=== PATIENT | female | born 1955 | race Caucasian/White ===

== ENCOUNTER 2020-08-07 20:47 | Emergency (ER) | payer MEDICARE ==
[2020-08-07 22:09] VITALS: BP 146/84; PULSE 58; RESP 15; TEMP 97.4
--- NOTE | 2020-08-07 23:25 | ED ---
Recheck HPI - General Chief Complaint: Recheck/Abnormal Lab/Rx Stated Complaint: Covid Test Time Seen by Provider: 08/07/20 23:22 Source: patient Mode of arrival: ambulatory - History of Present Illness Initial Comments: 65-year-old female patient presents to the emergency department today requesting COVID test. States that she needs to get into [facility] and they are requiring her to have a test. She states she does not have any symptoms. She is in her usual state of health. - Related Data Allergies Allergy/AdvReac Type Severity Reaction Status Date / Time No Known Allergies Allergy Verified 08/07/20 22:04 Review of Systems ROS Statement: Those systems with pertinent positive or pertinent negative responses have been documented in the HPI. ROS Other: All systems not noted in ROS Statement are negative. Past Medical History Past Medical History: No Reported History History of Any Multi-Drug Resistant Organisms: None Reported Past Surgical History: No Surgical Hx Reported Past Psychological History: No Psychological Hx Reported Smoking Status: Never smoker Past Alcohol Use History: None Reported Past Drug Use History: None Reported General Exam General appearance: alert, in no apparent distress Respiratory exam: Present: normal lung sounds bilaterally. Absent: respiratory distress, wheezes, rales, rhonchi, stridor Cardiovascular Exam: Present: regular rate, normal rhythm, normal heart sounds. Absent: systolic murmur, diastolic murmur, rubs, gallop, clicks Neurological exam: Present: alert, oriented X3 Psychiatric exam: Present: normal affect, normal mood Skin exam: Present: warm, dry, intact, normal color. Absent: rash Course Vital Signs 08/07/20 22:04 Temperature 97.4 F L Pulse Rate 58 L Respiratory 15 Rate Blood Pressure 146/84 O2 Sat by Pulse 98 Oximetry Medical Decision Making - Medical Decision Making 65-year-old female patient presents to the emergency department today requesting COVID test. Physical examination was unremarkable. Patient denies having any symptoms no physical concerns at this time. She did test negative. We will print out her lab results and she'll be discharged to follow-up with her primary care physician in one to 2 days. Return for any new, worsening, or concerning symptoms. My attending is Dr. Franco. - Lab Data Lab Results 08/07/20 Range/Units 22:11 Coronavirus (PCR) Not Detected (Not Detectd) Disposition Clinical Impression: Encounter for laboratory testing for COVID-19 virus Disposition: HOME SELF-CARE Condition: Good Additional Instructions: Your COVID test was negative. Follow-up with the primary care physician for recheck in 1-2 days. Return for any new, worsening, or concerning symptoms. Is patient prescribed a controlled substance at d/c from ED?: No Referrals: None,Stated [Primary Care Provider] - 1-2 days Time of Disposition: 23:25
== END 2020-08-07 23:45 | disposition home or self-care (01) ==
LOC: EC 20:47
DX: Z20.822 Contact with and (suspected) exposure to COVID-19 (principal)
CPT/HCPCS: 87635; 99282